=== PATIENT | female | born 1960 | race American Indian/Alaskan Native ===

== ENCOUNTER 2017-05-03 13:56 | Outpatient (CLI) | payer BC ==
--- NOTE | 2017-05-03 14:41 | XRay Report ---
RIGHT HIP, 2 views: History: Right hip pain. No comparison. There is borderline osteopenia. Mild osteoarthritic changes are identified at the right hip. No evidence for fracture, dislocation or osteonecrosis. The soft tissues are unremarkable. IMPRESSION: Borderline osteopenia. Mild osteoarthritis. No acute process.
--- NOTE | 2017-05-03 14:42 | XRay Report ---
LUMBOSACRAL SPINE, 3 VIEWS: History: Back pain Findings: Borderline osteopenia. There is 4 mm anterolisthesis of L4 with respect L5 which appears to be secondary to degenerative facet arthropathy. The remaining lumbar vertebra are normal in height and alignment. There is mild disc space narrowing at L4-5. There is moderate facet arthropathy from L3-4 to L5-S1. The sacrum and SI joints are unremarkable. Impression: Borderline osteopenia. Lumbar spondylosis which is most pronounced at L4-5. Grade 1 anterolisthesis of L4 with respect L5.
== END 2017-05-03 13:57 | disposition home or self-care (01) ==
LOC: XRAY 13:56
PROVIDERS: ATTEND Family Medicine Adult Medicine
DX: M16.11 Unilateral primary osteoarthritis, right hip (principal); M47.896 Other spondylosis, lumbar region; M85.88 Other specified disorders of bone density and structure, other site
CPT/HCPCS: 72100

== ENCOUNTER 2017-06-08 07:14 | Outpatient (CLI) | payer BC ==
--- NOTE | 2017-06-08 16:34 | Mammography Report ---
BONE DEXA:06/08/17 10:45:00 CLINICAL: Postmenopausal. No comparison. TECHNIQUE: Two site bone DEXA performed on an Hologic scanner. FINDINGS: The average BMD of the lumbar spine L1-L4 is 0.823g/cm squared with a T-score of -2.0 and a Z-score of -1.5. The average BMD of the left hip is 0.802g/cm squared with a T-score of -1.1 and a Z-score of -0.7. The left femoral neck BMD is 0.631g/cm squared with a T score of -2.0 and a Z score of -1.2. IMPRESSION: 1. WHO classification: Osteopenia with increased fracture risk based on both spine and left hip measurements. 2. The FRAX 10 year fracture probability for a major osteoporotic fracture is 3.9%. 3. The FRAX 10 year fracture probability for hip fracture is 0.4%. Note: FRAX version 3.01. Fracture probability calculated for an untreated patient. Fracture probability may be lower if the patient has received treatment. RECOMMENDATION: Clinical correlation and routine screening. DEFINITIONS: BMD = Bone Mineral Density T-score = BMD related to mean peak bone mass of young adult (mean expressed in Standard Deviation) Z-score = Age matched BMD expressed in SD World Health Organization (WHO) Diagnostic Criteria Normal T-score > -1 SD Osteopenia T-score between -1 and -2.4 SD Osteoporosis T-score -2.5 SD or below NOTE: BMD is not the only risk factor for fracture; also consider factors such as the patient's age, risk of falling, previous osteoporotic fracture, family history of osteoporotic fractures, current smoker, and low body weight. All treatment decisions require clinical judgment and consideration of individual patient factors, including patient preferences, comorbidities, previous drug use and risk factors not captured in the FRAX model (e.g. frailty, falls, vitamin D deficiency, increased bone turnover, interval significant decline in BMD). Fracture probability is calculated for an untreated patient. Fracture probability may be lower if the patient has received treatment. Z-scores are not calculated if >80 years of age.
== END 2017-06-08 07:15 | disposition home or self-care (01) ==
LOC: MAMMO 07:14
PROVIDERS: ATTEND Family Medicine Adult Medicine
DX: M85.88 Other specified disorders of bone density and structure, other site (principal); Z78.0 Asymptomatic menopausal state; Z90.710 Acquired absence of both cervix and uterus
CPT/HCPCS: 77080

== ENCOUNTER 2018-03-26 07:11 | Outpatient (CLI) | payer BC ==
[2018-03-26 07:39] LABS: Hematocrit 44.9 % (30.3-42.9); Mean Corpuscular HGB Conc 33 % (30-34); Mean Corpuscular Volume 90 fl (79-97); Platelet Count 353 K/mm3 (140-440); Red Blood Count 4.98 M/mm3 (3.65-5.03); Red Cell Distribution Width 13.5 % (13.2-15.2)
[2018-03-26 08:05] LABS: Alanine Aminotransferase 31 units/L (7-56); Albumin 4.1 g/dL (3.9-5); BUN/Creatinine Ratio 18; Blood Urea Nitrogen 14 mg/dL (7-17); Calcium 9.5 mg/dL (8.4-10.2); Hemolysis Index 10; LDL Cholesterol,Direct 143 mg/dL (50-130)
[2018-03-26 09:06] LABS: Chol/HDL Ratio 4.85 %; HDL Cholesterol 40 mg/dL (40-59)
== END 2018-03-26 07:12 | disposition home or self-care (01) ==
LOC: LAB 07:11
PROVIDERS: ATTEND Family Medicine Adult Medicine
DX: I10 Essential (primary) hypertension (principal); E11.9 Type 2 diabetes mellitus without complications
CPT/HCPCS: 36415; 80053; 80061; 83036; 84443; 85027

== ENCOUNTER 2018-07-04 09:31 | Outpatient (CLI) | payer BC ==
--- NOTE | 2018-07-04 23:20 | Magnetic Resonance Report ---
PROCEDURE: MR LUMBAR SPINE WO CON TECHNIQUE: Magnetic resonance imaging of the lumbar spine was performed using standard pulse sequenc es without contrast material. HISTORY: LOW BAACK PAIN, SEGMENTAL AND STOMATIC DYS. OF LUMBAR COMPARISONS: None . FINDINGS: For the purpose of this examination the inferior most well-defined disc has been removed at L5-S1. Ve rtebral height is within normal limits with normal bone marrow signal. Conus medullaris is normal in location and appearance.. T12-L1: No significant abnormality. L1-2: No significant abnormality. L2-3: No significant abnormality. L3-4: No significant abnormality. L4-5: There is mild degree spondylolisthesis measuring about 4 mm associated with disc dehydration a nd mild degree spinal canal stenosis. There is also moderate degree bilateral facet and ligamentous h ypertrophy. No significant neural foraminal compromise.. L5-S1: No significant abnormality. Other: None. IMPRESSION: Mild degree spinal canal stenosis at L4-5 as described above.. This document is electronically signed by Garcia Fleming MD., July 04 2018 11:17:53 PM ET
== END 2018-07-04 09:32 | disposition home or self-care (01) ==
LOC: MRI 09:31
PROVIDERS: ATTEND Chiropractor
DX: M48.061 Spinal stenosis, lumbar region without neurogenic claudication (principal); M99.03 Segmental and somatic dysfunction of lumbar region
CPT/HCPCS: 72148

== ENCOUNTER 2018-10-07 06:58 | Outpatient (CLI) | payer BC ==
[2018-10-07 07:45] LABS: Hematocrit 42.6 % (30.3-42.9); Hemoglobin 14.7 gm/dl (10.1-14.3); Mean Corpuscular HGB Conc 35 % (30-34); Mean Corpuscular Volume 89 fl (79-97); Platelet Count 310 K/mm3 (140-440); Red Blood Count 4.77 M/mm3 (3.65-5.03); Red Cell Distribution Width 13.5 % (13.2-15.2)
[2018-10-07 07:47] LABS: Bilirubin,Urine NEG (Negative); Blood,Urine NEG (Negative); Color,Urine Straw (Yellow); Protein,Urine <15 mg/dL mg/dL (Negative); Urobilinogen,Urine < 2.0 mg/dL (<2.0); WBC,Urine < 1.0 /HPF (0.0-6.0)
[2018-10-07 08:13] LABS: Alanine Aminotransferase 18 units/L (7-56); Albumin 4.2 g/dL (3.9-5); BUN/Creatinine Ratio 20; Blood Urea Nitrogen 16 mg/dL (7-17); Calcium 10.1 mg/dL (8.4-10.2); Hemolysis Index 10; LDL Cholesterol,Direct 120 mg/dL (50-130)
[2018-10-07 08:26] LABS: Chol/HDL Ratio 3.59 %; HDL Cholesterol 54 mg/dL (40-59)
[2018-10-07 12:56] LABS: Creatinine,Urine 37.9 mg/dL (0.1-20.0)
[2018-10-07 13:05] LABS: Microalbumin/Creatinine Ratio 31.6 ug/mg
== END 2018-10-07 06:59 | disposition home or self-care (01) ==
LOC: LAB 06:58
PROVIDERS: ATTEND Family Medicine Adult Medicine
DX: E11.9 Type 2 diabetes mellitus without complications (principal); I10 Essential (primary) hypertension
CPT/HCPCS: 36415; 80053; 80061; 81001; 82043; 83036; 84443; 85027

== ENCOUNTER 2019-05-07 06:41 | Outpatient (CLI) | payer BC ==
[2019-05-07 07:24] LABS: Hematocrit 45.4 % (30.3-42.9); Hemoglobin 14.9 gm/dl (10.1-14.3); Mean Corpuscular HGB Conc 33 % (30-34); Mean Corpuscular Volume 90 fl (79-97); Platelet Count 329 K/mm3 (140-440); Red Blood Count 5.05 M/mm3 (3.65-5.03); Red Cell Distribution Width 13.6 % (13.2-15.2)
[2019-05-07 07:25] LABS: Bilirubin,Urine NEG (Negative); Blood,Urine NEG (Negative); Color,Urine Yellow (Yellow); Mucus,Urine FEW /HPF; Protein,Urine <15 mg/dL mg/dL (Negative); Urobilinogen,Urine < 2.0 mg/dL (<2.0)
[2019-05-07 07:49] LABS: Hepatitis B Surface Antigen Non-Reactive (Negative); Hepatitis C Virus Antibody Non-Reactive (NonReactive)
[2019-05-07 07:52] LABS: Alanine Aminotransferase 33 units/L (7-56); Albumin 4.5 g/dL (3.9-5); BUN/Creatinine Ratio 20; Blood Urea Nitrogen 20 mg/dL (7-17); Calcium 9.8 mg/dL (8.4-10.2); Hemolysis Index 8; LDL Cholesterol,Direct 165 mg/dL (50-130)
[2019-05-07 08:24] LABS: Chol/HDL Ratio 3.81 %; HDL Cholesterol 65 mg/dL (40-59)
[2019-05-07 13:30] LABS: Creatinine,Urine 74.3 mg/dL (0.1-20.0)
[2019-05-07 13:36] LABS: Microalbumin/Creatinine Ratio 16.1 ug/mg
== END 2019-05-07 06:42 | disposition home or self-care (01) ==
LOC: LAB 06:41
PROVIDERS: ATTEND Family Medicine Adult Medicine
DX: Z13.0 Encounter for screening for diseases of the blood and blood-forming organs and certain disorders involving the immune mechanism (principal); Z11.3 Encounter for screening for infections with a predominantly sexual mode of transmission; Z13.220 Encounter for screening for lipoid disorders; Z01.89 Encounter for other specified special examinations; Z11.2 Encounter for screening for other bacterial diseases; Z11.4 Encounter for screening for human immunodeficiency virus [HIV]; Z13.29 Encounter for screening for other suspected endocrine disorder; I10 Essential (primary) hypertension; E11.9 Type 2 diabetes mellitus without complications
CPT/HCPCS: 36415; 80053; 80061; 80074; 81001; 82043; 83036; 84443; 85027; 86592; 86689; 87591

== ENCOUNTER 2020-03-01 08:34 | Outpatient (CLI) | payer BC ==
--- NOTE | 2020-03-01 10:47 | Mammography Report ---
DIGITAL SCREENING MAMMOGRAM WITH CAD, 03/01/2020 INDICATION: Routine screening mammography. TECHNIQUE: Digital bilateral 2D mammography was obtained in the craniocaudal and mediolateral obliq ue projections. This examination was interpreted with the benefit of Computer-Aided Detection analysi s. COMPARISON: 02/28/2019. 02/15/2017. FINDINGS: Breast Density: There are scattered areas of fibroglandular density. There is no evidence of dominant mass, suspicious calcifications or architectural distortion in eithe r breast. IMPRESSION: Follow up recommendation: Routine yearly BI-RADS Category 1: Negative. A "normal" or negative report should not discourage follow up or biopsy of a clinically significant f inding. A written summary of these findings will be mailed to the patient. The patient will be entered into a mammography reporting system which will generate a reminder letter for the patient's next appointmen t at the appropriate interval. The [employer] recommends yearly mammograms starting at age 40 and continuing as l keri as a woman is in good health. Breast MRI is recommended for women with an approximate 20-25% or greater lifetime risk of breast cancer, including women with a strong family history of breast or ova precious cancer or who have been treated for Hodgkin's disease. Signer Name: Godwin Oro MD Signed: 03/01/2020 10:43 AM Workstation Name: [id number]
== END 2020-03-01 08:35 | disposition home or self-care (01) ==
LOC: SPVWC 08:34
PROVIDERS: ATTEND Surgery
DX: Z12.31 Encounter for screening mammogram for malignant neoplasm of breast (principal)
CPT/HCPCS: 77067

== ENCOUNTER 2020-06-07 07:14 | Outpatient (CLI) | payer BC ==
[2020-06-07 07:50] LABS: Basophils # (Auto) 0.1 K/mm3 (0.0-0.1); Basophils % (Auto) 1.2 % (0.0-1.8); Eosinophils # (Auto) 0.1 K/mm3 (0.0-0.4); Eosinophils % (Auto) 2.3 % (0.0-4.3); Hematocrit 43.4 % (30.3-42.9); Hemoglobin 14.4 gm/dl (10.1-14.3); Lymphocytes # (Auto) 1.9 K/mm3 (1.2-5.4); Mean Corpuscular HGB Conc 33 % (30-34); Mean Corpuscular Volume 89 fl (79-97); Monocytes # (Auto) 0.5 K/mm3 (0.0-0.8); Monocytes % (Auto) 8.3 % (0.0-7.3); Platelet Count 326 K/mm3 (140-440); Red Cell Distribution Width 13.3 % (13.2-15.2)
[2020-06-07 07:51] LABS: Bilirubin,Urine NEG (Negative); Blood,Urine NEG (Negative); Color,Urine Straw (Yellow); Mucus,Urine FEW /HPF; Protein,Urine <15 mg/dL mg/dL (Negative); Urobilinogen,Urine < 2.0 mg/dL (<2.0)
[2020-06-07 08:17] LABS: Alanine Aminotransferase 17 units/L (7-56); Albumin 4.3 g/dL (3.9-5); BUN/Creatinine Ratio 22; Blood Urea Nitrogen 20 mg/dL (7-17); Calcium 9.7 mg/dL (8.4-10.2); Chol/HDL Ratio 2.58 %; HDL Cholesterol 58 mg/dL (40-59); Hemolysis Index 5; LDL Cholesterol,Direct 89 mg/dL (50-130)
[2020-06-07 13:14] LABS: Creatinine,Urine 57.1 mg/dL (0.1-20.0)
== END 2020-06-07 07:15 | disposition home or self-care (01) ==
LOC: LAB 07:14
PROVIDERS: ATTEND Physician Assistant
DX: E11.9 Type 2 diabetes mellitus without complications (principal)
CPT/HCPCS: 36415; 80053; 80061; 81001; 82043; 83036; 84443; 85025

== ENCOUNTER 2020-11-12 06:55 | Outpatient (CLI) | payer BC ==
[2020-11-12 07:59] LABS: Alanine Aminotransferase 25 units/L (7-56); Albumin 4.4 g/dL (3.9-5); Blood Urea Nitrogen 16 mg/dL (7-17); Chol/HDL Ratio 2.39 %; HDL Cholesterol 58 mg/dL (40-59); Hemolysis Index 5; LDL Cholesterol,Direct 74 mg/dL (50-130)
[2020-11-12 08:01] LABS: BUN/Creatinine Ratio 23
[2020-11-12 09:27] LABS: Bilirubin,Urine NEG (Negative); Blood,Urine NEG (Negative); Color,Urine Straw (Yellow); Protein,Urine <15 mg/dL mg/dL (Negative); RBC,Urine < 1.0 /HPF (0.0-6.0); Urobilinogen,Urine < 2.0 mg/dL (<2.0); WBC,Urine < 1.0 /HPF (0.0-6.0)
== END 2020-11-12 06:56 | disposition home or self-care (01) ==
LOC: LAB 06:55
PROVIDERS: ATTEND Family Medicine Adult Medicine
DX: E11.9 Type 2 diabetes mellitus without complications (principal); E78.2 Mixed hyperlipidemia; I10 Essential (primary) hypertension
CPT/HCPCS: 36415; 80053; 80061; 81001; 83036; 84443

== ENCOUNTER 2021-03-02 07:07 | Outpatient (CLI) | payer BC ==
--- NOTE | 2021-03-02 13:32 | Mammography Report ---
DIGITAL SCREENING MAMMOGRAM WITH CAD, 03/02/2021 CLINICAL INFORMATION / INDICATION: Routine screening mammography. TECHNIQUE: Digital bilateral 2D mammography was obtained in the craniocaudal and mediolateral obliqu e projections. This examination was interpreted with the benefit of Computer-Aided Detection analysis . COMPARISON: 03/01/2020, 02/28/2019 FINDINGS: Breast Density: There are scattered areas of fibroglandular density. No dominant mass, suspicious calcifications, or architectural distortion in either breast. Left breast biopsy clip. Overall, no significant interval change. IMPRESSION: No mammographic evidence of malignancy. Follow up recommendation: Routine yearly BI-RADS Category 2: BENIGN. A "normal" or negative report should not discourage follow up or biopsy of a clinically significant f inding. A written summary of these findings will be mailed to the patient. The patient will be entered into a mammography reporting system which will generate a reminder letter for the patient's next appointmen t at the appropriate interval. The [employer] recommends yearly mammograms starting at age 40 and continuing as l keri as a woman is in good health. Breast MRI is recommended for women with an approximate 20-25% or greater lifetime risk of breast cancer, including women with a strong family history of breast or ova precious cancer or who have been treated for Hodgkin's disease. Signer Name: Maria E Ren MD Signed: 03/02/2021 1:27 PM Workstation Name: [id number]
== END 2021-03-02 07:08 | disposition home or self-care (01) ==
LOC: MAMMO 07:07
PROVIDERS: ATTEND Family Medicine Adult Medicine
DX: Z12.31 Encounter for screening mammogram for malignant neoplasm of breast (principal)
CPT/HCPCS: 77067